=== PATIENT | female | born 1935 | race Caucasian/White ===

== ENCOUNTER 2017-08-19 10:35 | Emergency (ER) | payer MEDICARE ==
[~2017-08-19] VITALS: Ht 152.4 cm; Wt 48.0 kg
[2017-08-19 10:49] VITALS: BP 129/59; PULSE 78; RESP 16; TEMP 97.7; O2SAT 99
[2017-08-19] MEDS ORDERED: SYNT25TA PO (11:07)
[2017-08-19] MEDS ORDERED: LEVE500 PO (11:07)
[2017-08-19] MEDS ORDERED: CLON0.1D T-DERMAL (11:07)
[2017-08-19] MEDS ORDERED: METO25TA3 PO (11:07)
[2017-08-19] MEDS ORDERED: METF500T PO (11:07)
[2017-08-19] MEDS ORDERED: MULTTAB67 PO (11:07)
[2017-08-19] MEDS ORDERED: AMLO5 PO (11:07)
[2017-08-19] MEDS ORDERED: BUSP5TAB PO (11:07)
[2017-08-19] MEDS ORDERED: SERO25TA PO (11:07)
--- NOTE | 2017-08-19 11:46 | PD ---
HPI Chief Complaint: Fall Time Seen by Provider: 11:07 Travel History International Travel<30 days: No Contact w/Intl Traveler<30days: No Traveled to known affect area: No History of Present Illness HPI The patient is 81 years old and arrives to the ER after she slid from bed onto the floor in her house. The patient is on hospice care due to recurrent intracranial bleeds. The patient fell onto a carpeted floor from a distance of less than a further slowing sliding motion is noted. The daughter provides much of the history as the patient has dementia and speaks Hungarian. Translation services were provided however declined. Tenderness to palpation in the right knee is reported according to EMS. The patient complained of neck pain. The patient refused a c-collar. There is no loss of consciousness or head trauma. PFSH Past Medical History Anxiety: Yes Cardiovascular Problems: Yes Dementia: Yes Diabetes: Yes Patient Takes Glucophage: Yes Diminished Hearing: No Hypertension: Yes Neurologic: Yes Psychiatric: Yes Thyroid Disease: Yes Tetanus Vaccination: > 5 Years Influenza Vaccination: Yes ?: Not : 0 Past Surgical History Neurologic Surgery: Yes (craniotomy for brain bleed) Social History Alcohol Use: No Tobacco Use: No Substance Use: No Allergies-Medications (Allergen,Severity, Reaction): Coded Allergies: No Known Allergies (Verified Allergy, Unknown, 08/19/17) Reported Meds & Prescriptions Reported Meds & Active Scripts Active Reported Multiple Vitamin 1 Tab 1 Tab PO DAILY Buspirone (Buspirone HCl) 5 Mg Tab 5 Mg PO BID Seroquel (Quetiapine Fumarate) 25 Mg Tab 25 Mg PO DAILY Clonidine 168 HR Patch (Clonidine HCl) 0.1 Mg/24 Hr Patch 1 Patch T-DERMAL Q7D Keppra (Levetiracetam) 500 Mg Tab 500 Mg PO BID Norvasc (Amlodipine Besylate) 5 Mg Tab 5 Mg PO DAILY Metoprolol Tartrate 25 Mg Tab 12.5 Mg PO DAILY Metformin (Metformin HCl) 500 Mg Tab 500 Mg PO DAILY With a meal Synthroid (Levothyroxine Sodium) 25 Mcg Tab 25 Mcg PO DAILY Review of Systems Except as stated in HPI: all other systems reviewed are Neg General / Constitutional: No: Fever Physical Exam Narrative GENERAL: 81-year-old female pleasant elderly dementia present Vital Signs Date Time Temp Pulse Resp B/P (MAP) Pulse Ox O2 Delivery O2 Flow Rate FiO2 08/19/17 10:50 78 16 99 Room Air 08/19/17 10:49 97.7 78 16 129/59 (82) 99 SKIN: Warm and dry. HEAD: Atraumatic. Normocephalic. EYES: Pupils equal and round. No scleral icterus. No injection or drainage. ENT: No nasal bleeding or discharge. Mucous membranes pink and moist. NECK: Trachea midline. No JVD. CARDIOVASCULAR: Regular rate and rhythm. RESPIRATORY: No accessory muscle use. Clear to auscultation. Breath sounds equal bilaterally. GASTROINTESTINAL: Abdomen soft, non-tender, nondistended. Hepatic and splenic margins not palpable. MUSCULOSKELETAL: Extremities without clubbing, cyanosis, or edema. No obvious deformities. There is very minimal abrasion and erythema overlying the right tibial tuberosity. NEUROLOGICAL: Awake and alert. No obvious cranial nerve deficits. Motor grossly within normal limits. Five out of 5 muscle strength in the arms and legs. Normal speech. PSYCHIATRIC: Appropriate mood and affect; insight and judgment normal. Data Data Last Documented VS Vital Signs Date Time Temp Pulse Resp B/P (MAP) Pulse Ox O2 Delivery O2 Flow Rate FiO2 08/19/17 10:50 78 16 99 Room Air 08/19/17 10:49 97.7 129/59 (82) Orders Orders Knee, Complete (4vws) (08/19/17 ) Hip, Uni(Ap&Lat) W Ap Pelvis (08/19/17 ) Ct Cerv Spine W/O Contrast (08/19/17 11:10) MDM Medical Decision Making Medical Screen Exam Complete: Yes Emergency Medical Condition: Yes Differential Diagnosis Knee fracture, hip fracture, cervical spine injury Narrative Course Chronic changes about the right hip are noted. Cervical spine CT shows no acute abnormality. Right knee x-ray is unremarkable. Patient is ready for discharge. Diagnosis Primary Impression: Fall Qualified Codes: W19.XXXA - Unspecified fall, initial encounter Referrals: Primary Care Physician Med/Other Pt SpecificInfo: No Change to Meds Disposition: 01 DISCHARGE HOME Condition: Stable Goldy Manzano MD August 19, 2017 11:46
--- NOTE | 2017-08-19 11:54 | RADRPT ---
EXAM DATE/TIME: 08/19/2017 11:22 [facility] COMPARISON: No previous studies available for comparison. INDICATIONS : Left hip pain after fall from bed this morning. MEDICAL HISTORY : Hypertension. Dementia. SURGICAL HISTORY : None. ENCOUNTER: Initial ACUITY: 1 day PAIN SCORE: Non-responsive. LOCATION: Left hip. FINDINGS: 3 views of the pelvis and left hip reveal osteopenia. There is mixed lucency and sclerosis with mild expansion of the right femoral neck and intertrochanteric region. No soft tissue component. No perios teal thickening. No fractures or dislocations observed. Soft tissues are unremarkable. A calcificatio n overlies the pelvis likely related to a degenerating fibroid. CONCLUSION: 1. No acute fracture or dislocation. 2. Chronic lesion involving the right femoral neck. It is nonspecific in its radiographic appearance. Further characterization could be utilized utilizing CT if clinically warranted. Aldair Vizcarra Jr., MD on August 19, 2017 at 11:43 Board Certified Radiologist. This report was verified electronically.
--- NOTE | 2017-08-19 11:55 | RADRPT ---
EXAM DATE/TIME: 08/19/2017 11:26 [facility] COMPARISON: No previous studies available for comparison. INDICATIONS : Left knee swelling after fall this morning. MEDICAL HISTORY : Hypertension. Dementia. SURGICAL HISTORY : None. ENCOUNTER: Initial ACUITY: 1 day PAIN SCORE: Non-responsive. LOCATION: Left knee. FINDINGS: Four view examination of the left knee demonstrates no evidence of fracture or dislocation. Bony min eralization is reduced. The articular surfaces are intact. The suprapatellar soft tissues have a no rmal configuration. Atherosclerotic calcifications. CONCLUSION: 1. No acute abnormality. 2. Osteopenia. Aldair Vizcarra Jr., MD on August 19, 2017 at 11:52 Board Certified Radiologist. This report was verified electronically.
--- NOTE | 2017-08-19 12:19 | RADRPT ---
EXAM DATE/TIME: 08/19/2017 11:47 [facility] COMPARISON: No previous studies available for comparison. INDICATIONS : Trauma, fall from bed. RADIATION DOSE: 15.76 CTDIvol (mGy) MEDICAL HISTORY : Cardiovascular disease. Diabetes mellitus type 2. Dementia. SURGICAL HISTORY : None. ENCOUNTER: Initial ACUITY: 1 day PAIN SCALE: 2/10 LOCATION: neck TECHNIQUE: Volumetric scanning of the cervical spine was performed. Multiplanar reconstructions in the sagittal, coronal and oblique axial planes were performed. Using automated exposure control and adjustment o f the mA and/or kV according to patient size, radiation dose was kept as low as reasonably achievable to obtain optimal diagnostic quality images. DICOM format image data is available electronically f or review and comparison. FINDINGS: VERTEBRAE: Normal vertebral body height. There are degenerative changes throughout the cervical spine. There is disc degeneration with disc space narrowing especially at C5-6 and C6-7. No acute bony fractures are demonstrated. ALIGNMENT: No evidence of subluxation. C2-C3: The bony spinal canal is normal in size. No evidence of disc bulge or herniation. The neural forami na are bilaterally patent. C3-C4: The bony spinal canal is normal in size. No evidence of disc bulge or herniation. The neural forami na are bilaterally patent. Bilateral facet arthritis. C4-C5: The bony spinal canal is normal in size. No evidence of disc bulge or herniation. The neural forami na are bilaterally patent. Bilateral facet arthritis. C5-C6: Broad-based bulge and disc osteophyte complex. Mild narrowing of the neural foramina bilaterally. Wade ateral facet arthritis. C6-C7: The bony spinal canal is normal in size. No evidence of disc bulge or herniation. The neural forami na are bilaterally patent. C7-T1: The bony spinal canal is normal in size. No evidence of disc bulge or herniation. The neural forami na are bilaterally patent. CONCLUSION: 1. No acute bony fracture. 2. Primary bony degenerative changes, disc degeneration and disc space narrowing especially at C5-6 a nd C6-7. 3. Broad-based bulging with disc osteophyte complex at C5-6. 4. Bilateral facet arthritis at multiple levels. Foster Pagan MD on August 19, 2017 at 12:14 Board Certified Radiologist. This report was verified electronically.
== END 2017-08-19 14:41 | disposition home or self-care (01) ==
LOC: NEPC 10:35 → NEDAMB 14:41
DX: M54.2 Cervicalgia (principal); M25.561 Pain in right knee; F03.90 Unspecified dementia, unspecified severity, without behavioral disturbance, psychotic disturbance, mood disturbance, and anxiety; E11.9 Type 2 diabetes mellitus without complications; I10 Essential (primary) hypertension; W06.XXXA Fall from bed, initial encounter; Y92.003 Bedroom of unspecified non-institutional (private) residence as the place of occurrence of the external cause; Z79.84 Long term (current) use of oral hypoglycemic drugs
CPT/HCPCS: 72125; 73502; 73564; 99284